=== PATIENT | male | born 1945 | race Caucasian/White ===

== ENCOUNTER 2016-11-21 08:45 | Outpatient (RCR) | payer MEDICARE, OTHER ==
[~2016-11-21 08:45] MED LIST: ASPI325T6 PO; ASPIRIN 81M81 MG/TA2 PO; COZAAR100 MG PO; DIOVAN160 MG PO; FERRO-TIME325 MG PO; IBUPROFEN800 MG PO; NAPROSYN500 MG PO; NATURAL C500 MG PO; NORCO 325 MG-7.1 TAB PO; NORVASC 10MG10 MG PO; NORVASC 5MG5 MG/TAB PO; PREVACID 15MG15 M1 PO; PRIL40 PO; TRANDATE 200MG200 MG PO; ZOCOR 20MG20 MG PO
== END 2016-12-02 12:20 | disposition home or self-care (01) ==
LOC: WSPT 08:45
DX: Z47.89 Encounter for other orthopedic aftercare (principal); M25.862 Other specified joint disorders, left knee
CPT/HCPCS: G8978-GP; G8979-GP; G8980-GP

== ENCOUNTER 2016-12-13 00:22 | Inpatient (IN) | payer MEDICARE, OTHER ==
[~2016-12-13] VITALS: Ht 180.3 cm; Wt 108.3 kg
[2016-12-13] VITALS (963 sets, daily range): BP systolic 114–154; BP diastolic 66–125; PULSE 46–147; TEMP 97–98.2; O2SAT 86–100
[2016-12-13 00:44] LABS: BASO % 0.5 % (0.0-2.0); EOS # 0.3 (0.0-0.7); EOS % 3.7 % (0-4.0); GRAN # 5.5 (1.4-6.5); GRAN % 66.1 % (42.2-75.2); HEMATOCRIT 47.5 % (42.0-52.0); HEMOGLOBIN 16.3 g/dl (13.5-18.0); LYMPH # 1.9 (1.2-3.4); LYMPH % 22.6 % (20.0-51.0); MEAN CELL VOLUME 95 fl (80.0-100.0); MEAN CORPUSCULAR HEMOGLOBIN 33 pg (27.0-31.0); MEAN CORPUSCULAR HGB CONC 34 g/dl (33.0-37.0); MEAN PLATELET VOLUME 11.2 fl (7.4-10.4); MONO # 0.6 (0.1-0.6); MONO % 6.7 % (1.7-9.3); PLATELET COUNT 197 K/mm3 (130-400); REDCELL DISTRIBUTION WIDTH-CV 12.8 % (11.5-14.5); WHITE BLOOD COUNT 8.4 K/mm3 (4.8-10.8)
[2016-12-13 00:55] LABS: PROTHROMBIN TIME 11.3 SECONDS (9.7-12.8)
[2016-12-13 00:56] LABS: ADJUSTED CALCIUM 9.5 mg/dL (8.4-10.2); ALBUMIN 4.4 gm/dL (3.5-5.0); BILIRUBIN,TOTAL 0.8 mg/dL (0.0-1.0); CALCIUM 9.8 mg/dL (8.4-10.2); CREATININE, serum 0.8 mg/dL (0.66-1.25); POTASSIUM 3.6 mmol/L (3.4-5.0); TOTAL PROTEIN 7.9 gm/dL (6.4-8.2)
[2016-12-13 00:58] LABS: PARTIAL THROMBOPLASTIN TIME 31.7 SECONDS (26.0-37.0)
[2016-12-13 01:09] LABS: TROPONIN-I 0.024 ng/mL (0.000-0.034)
[2016-12-13] MEDS ORDERED: COZAAR100 MG PO (01:55)
[2016-12-13] MEDS ORDERED: ASPIRIN 81M81 MG/TA2 PO (01:56)
[2016-12-13] MEDS ORDERED: PROCTOZONE-HC (01:57)
[2016-12-13] MEDS ORDERED: NYSTATIN100000 U/G (01:57)
[2016-12-13] MEDS ORDERED: THE MEDICINE S300 M1 PO (01:58)
[2016-12-13 06:04] LABS: BASO % 0.4 % (0.0-2.0); EOS # 0.2 (0.0-0.7); EOS % 3.1 % (0-4.0); GRAN # 4.4 (1.4-6.5); GRAN % 61.7 % (42.2-75.2); HEMATOCRIT 44.2 % (42.0-52.0); HEMOGLOBIN 14.9 g/dl (13.5-18.0); LYMPH % 28.3 % (20.0-51.0); MEAN CELL VOLUME 96 fl (80.0-100.0); MEAN CORPUSCULAR HEMOGLOBIN 32 pg (27.0-31.0); MEAN CORPUSCULAR HGB CONC 34 g/dl (33.0-37.0); MONO # 0.5 (0.1-0.6); MONO % 6.4 % (1.7-9.3); PLATELET COUNT 191 K/mm3 (130-400); RED BLOOD COUNT 4.63 M/mm3 (4.20-5.60); REDCELL DISTRIBUTION WIDTH-CV 12.9 % (11.5-14.5); WHITE BLOOD COUNT 7.1 K/mm3 (4.8-10.8)
[2016-12-13 06:05] LABS: INR 1.1 (0.8-3.0); PROTHROMBIN TIME 12.3 SECONDS (9.7-12.8)
[2016-12-13 06:07] LABS: PARTIAL THROMBOPLASTIN TIME 41.5 SECONDS (26.0-37.0)
[2016-12-13 06:21] LABS: ADJUSTED CALCIUM 9.4 mg/dL (8.4-10.2); ALBUMIN 3.6 gm/dL (3.5-5.0); BILIRUBIN,TOTAL 0.7 mg/dL (0.0-1.0); CALCIUM 9.1 mg/dL (8.4-10.2); CREATININE, serum 0.71 mg/dL (0.66-1.25); POTASSIUM 3.8 mmol/L (3.4-5.0); TOTAL PROTEIN 6.6 gm/dL (6.4-8.2)
[2016-12-13 06:43] LABS: TROPONIN-I 0.139 ng/mL (0.000-0.034)
[2016-12-14] VITALS (372 sets, daily range): BP systolic 120–181; BP diastolic 64–98; PULSE 46–65; TEMP 96.9–98.5; O2SAT 87–98
[2016-12-14 06:06] LABS: HEMATOCRIT 42.8 % (42.0-52.0); HEMOGLOBIN 14.6 g/dl (13.5-18.0); MEAN CELL VOLUME 94 fl (80.0-100.0); MEAN CORPUSCULAR HEMOGLOBIN 32 pg (27.0-31.0); MEAN CORPUSCULAR HGB CONC 34 g/dl (33.0-37.0); MEAN PLATELET VOLUME 10.7 fl (7.4-10.4); PLATELET COUNT 168 K/mm3 (130-400); RED BLOOD COUNT 4.54 M/mm3 (4.20-5.60); REDCELL DISTRIBUTION WIDTH-CV 12.8 % (11.5-14.5); WHITE BLOOD COUNT 7.4 K/mm3 (4.8-10.8)
[2016-12-14 06:08] LABS: INR 1.1 (0.8-3.0); PROTHROMBIN TIME 12.3 SECONDS (9.7-12.8)
[2016-12-14 06:20] LABS: CALCIUM 8.9 mg/dL (8.4-10.2); CREATININE, serum 0.8 mg/dL (0.66-1.25); POTASSIUM 3.7 mmol/L (3.4-5.0)
[2016-12-15 03:12] VITALS: BP 146/71; PULSE 53; TEMP 98.3
[2016-12-15 08:23] VITALS: BP 145/67; PULSE 54; TEMP 98.1
[2016-12-15 10:12] LABS: CALCIUM 9.7 mg/dL (8.4-10.2); CREATININE, serum 0.89 mg/dL (0.66-1.25); MAGNESIUM 1.9 mg/dL (1.6-2.3); POTASSIUM 3.9 mmol/L (3.4-5.0)
[2016-12-15] MEDS ORDERED: CORDARONE200 MG/TAB PO (10:31)
== END 2016-12-15 11:55 | disposition home or self-care (01) | DRG 287 ==
LOC: COL.ER 00:22 → IMCU 01:48 → ICU 01:48 → IMCU 12:21 → ICU 12:21 → MEDICAL 12-14 17:00
PROVIDERS: Emergency Medicine; Internal Medicine; Internal Medicine Cardiovascular Disease
PROC: B2111ZZ Fluoroscopy of Multiple Coronary Arteries using Low Osmolar Contrast (ICD-10-PCS; principal; 2016-12-15)
PROC: 4A023N7 Measurement of Cardiac Sampling and Pressure, Left Heart, Percutaneous Approach (ICD-10-PCS; 2016-12-15)
DX: I45.6 Pre-excitation syndrome (principal); I10 Essential (primary) hypertension; E78.5 Hyperlipidemia, unspecified; Z96.652 Presence of left artificial knee joint
CPT/HCPCS: 99231-AI; 99239; C1887; J0282; J1644; J2250; J3010; J7030; J7060; Q9967

== ENCOUNTER 2017-03-31 14:03 | Emergency (ER) | payer MEDICARE, OTHER ==
[~2017-03-31] VITALS: Ht 180.3 cm; Wt 109.1 kg
[~2017-03-31 14:03] MED LIST changes: +CORDARONE200 MG/TAB PO; +NYSTATIN100000 U/G; +PROCTOZONE-HC; +THE MEDICINE S300 M1 PO
[2017-03-31 14:17] VITALS: TEMP 98.7
[2017-03-31 15:27] LABS: BASO % 0.3 % (0.0-2.0); EOS # 0.1 (0.0-0.7); EOS % 1.6 % (0-4.0); GRAN # 5.9 (1.4-6.5); GRAN % 74.1 % (42.2-75.2); HEMATOCRIT 40.7 % (42.0-52.0); HEMOGLOBIN 14.1 g/dl (13.5-18.0); LYMPH # 1.3 (1.2-3.4); LYMPH % 16.3 % (20.0-51.0); MEAN CELL VOLUME 95 fl (80.0-100.0); MEAN CORPUSCULAR HEMOGLOBIN 33 pg (27.0-31.0); MEAN CORPUSCULAR HGB CONC 35 g/dl (33.0-37.0); MEAN PLATELET VOLUME 9.7 fl (7.4-10.4); MONO # 0.6 (0.1-0.6); MONO % 7.3 % (1.7-9.3); PLATELET COUNT 259 K/mm3 (130-400); REDCELL DISTRIBUTION WIDTH-CV 12.6 % (11.5-14.5)
[2017-03-31 15:39] LABS: INR 2.4 (0.8-3.0); PROTHROMBIN TIME 27.1 SECONDS (9.7-12.8)
[2017-03-31 15:40] LABS: ADJUSTED CALCIUM 9.3 mg/dL (8.4-10.2); ALANINE AMINOTRANSFERASE 54 U/L (21-72); ALKALINE PHOSPHATASE 109 U/L (50-136); ANION GAP 14 mmol/L (7-16); BILIRUBIN,TOTAL 0.8 mg/dL (0.0-1.0); BLOOD UREA NITROGEN 19 mg/dL (9-20); CALCIUM 9.3 mg/dL (8.4-10.2); CARBON DIOXIDE 25 mmol/L (22-30); CHLORIDE 104 mmol/L (98-107); GLUCOSE 127 mg/dL (74-106); POTASSIUM 3.4 mmol/L (3.4-5.0); SODIUM 143 mmol/L (137-145); TOTAL PROTEIN 7.4 gm/dL (6.4-8.2)
[2017-03-31 15:41] LABS: PARTIAL THROMBOPLASTIN TIME 42.3 SECONDS (26.0-37.0)
[2017-03-31 15:53] LABS: TROPONIN-I < 0.012 ng/mL (0.000-0.034)
[2017-03-31 16:31] VITALS: BP 127/64; PULSE 64
== END 2017-03-31 16:37 | disposition home or self-care (01) ==
LOC: COL.ER 14:03
PROVIDERS: Family Medicine
DX: R00.2 Palpitations (principal); R00.0 Tachycardia, unspecified; I45.6 Pre-excitation syndrome; I10 Essential (primary) hypertension; I48.91 Unspecified atrial fibrillation; K21.9 Gastro-esophageal reflux disease without esophagitis; M19.90 Unspecified osteoarthritis, unspecified site; Z79.82 Long term (current) use of aspirin; Z98.890 Other specified postprocedural states

== ENCOUNTER 2017-04-18 19:55 | Emergency (ER) | payer MEDICARE, OTHER ==
[~2017-04-18] VITALS: Ht 180.3 cm; Wt 109.1 kg
[2017-04-18 19:57] VITALS: BP 148/70; PULSE 63; TEMP 98.5
[2017-04-18] MEDS ORDERED: NORVASC 5MG5 MG/TAB PO (20:45)
[2017-04-18] MEDS ORDERED: PROTONIX 40MG T40 MG PO (20:45)
[2017-04-18] MEDS ORDERED: XARELTO20 MG PO (20:47)
[2017-04-18] MEDS ORDERED: VITAMIN C500 MG PO (20:48)
[2017-04-18] MEDS ORDERED: CARTIA XT180 MG PO (20:48)
== END 2017-04-18 21:15 | disposition home or self-care (01) ==
LOC: COL.ER 19:55
DX: M79.605 Pain in left leg (principal); I48.91 Unspecified atrial fibrillation; Z79.01 Long term (current) use of anticoagulants; M79.89 Other specified soft tissue disorders

== ENCOUNTER 2019-09-18 00:40 | Emergency (ER) | payer MEDICARE, OTHER ==
[~2019-09-18] VITALS: Ht 180.3 cm; Wt 113.6 kg
[~2019-09-18 00:40] MED LIST changes: +CARTIA XT180 MG PO; +PROTONIX 40MG T40 MG PO; +VITAMIN C500 MG PO; +XARELTO20 MG PO
[2019-09-18 00:53] VITALS: BP 155/74; TEMP 97.5
[2019-09-18 05:12] VITALS: PULSE 52
== END 2019-09-18 05:12 | disposition home or self-care (01) ==
LOC: COL.ER 00:40
DX: H61.22 Impacted cerumen, left ear (principal); H60.92 Unspecified otitis externa, left ear; I10 Essential (primary) hypertension; E78.5 Hyperlipidemia, unspecified; K21.9 Gastro-esophageal reflux disease without esophagitis

== ENCOUNTER 2020-08-16 14:03 | Outpatient (RCR) | payer MEDICARE | END 2020-09-06 10:11 | disposition home or self-care (01) | LOC: WSPT 14:03 | DX: Z96.651 Presence of right artificial knee joint (principal) ==

== ENCOUNTER → 2020-11-06 | Outpatient (RCR) | payer MEDICARE | END | disposition home or self-care (01) | LOC: WSPT | DX: M17.11 Unilateral primary osteoarthritis, right knee (principal); Z96.651 Presence of right artificial knee joint ==

== ENCOUNTER 2020-11-22 11:15 | Outpatient (RCR) | payer MEDICARE | END 2020-11-23 09:04 | disposition home or self-care (01) | LOC: WSPT 11:15 | DX: Z96.651 Presence of right artificial knee joint (principal) ==

== ENCOUNTER → 2021-01-03 | Outpatient (CLI) | payer MEDICARE ==
[~2021-01-03] MED LIST changes: +ELIQUIS 5MG PO; +HYGROTON 2525 MG/TAB; +HYZAAR 12.5 MG-1 TAB PO; +MAG-OX 400400 MG/TAB PO; +MASON NATURAL2000 IU PO; +MELATONIN5 M1 SL; +ZOCOR 40MG40 MG PO
== END ==
LOC: COL.VAS 07:28
DX: M79.604 Pain in right leg (principal); Z96.651 Presence of right artificial knee joint; Z47.1 Aftercare following joint replacement surgery

== ENCOUNTER 2021-03-21 06:32 | Day surgery (SDC) | payer MEDICARE ==
[~2021-03-21] VITALS: Ht 180.3 cm; Wt 112.0 kg
[~2021-03-21 06:32] MED LIST changes: -ELIQUIS 5MG PO; -HYGROTON 2525 MG/TAB; -HYZAAR 12.5 MG-1 TAB PO; -MAG-OX 400400 MG/TAB PO; -MASON NATURAL2000 IU PO; -MELATONIN5 M1 SL; -ZOCOR 40MG40 MG PO
[2021-03-21] MEDS ORDERED: ZOCOR 40MG40 MG PO (07:36)
[2021-03-21] MEDS ORDERED: HYGROTON 2525 MG/TAB (07:36)
[2021-03-21] MEDS ORDERED: HYZAAR 12.5 MG-1 TAB PO (07:38)
[2021-03-21] MEDS ORDERED: MELATONIN5 M1 SL (07:39)
[2021-03-21] MEDS ORDERED: MAG-OX 400400 MG/TAB PO (07:41)
[2021-03-21] MEDS ORDERED: MASON NATURAL2000 IU PO (07:42)
[2021-03-21] MEDS ORDERED: ELIQUIS 5MG PO (07:42)
[2021-03-21 08:12] VITALS: BP 129/65; PULSE 49; TEMP 98
[2021-03-21 08:35] VITALS: PULSE 54
--- NOTE | 2021-03-21 08:36 | NUR ---
SEE MERGE DOCUMENTATION FOR MEDICATION ADMINISTRATION TIMES AND INTRA/POST PROCEDURE SEDATION ASSESSMENTS.
[2021-03-21 09:10] VITALS: BP 113/63; PULSE 60
--- NOTE | 2021-03-21 09:10 | NUR ---
pt arrived to [facility] 9 via bed from cardiac catheterization technician, awake and alert. has dressing over upper left chest x2, clean and dry. no c/o pain or sob. call light in reach, takes juice and coffee, will con't to monitor
[2021-03-21 09:25] VITALS: BP 108/52; PULSE 56
[2021-03-21 09:40] VITALS: BP 101/51; PULSE 50
--- NOTE | 2021-03-21 10:00 | NUR ---
Dr Feliz into see pt, pt sits up in bed, dressing remains the same, Discharge inst. given to pt on care of site, signs of infection, and next appt. Pt is to hold eliquis till Friday am. reviewed moderate sedation orders with verbal understanding. IV d'cd intact, pt up in room dressed and discharged with supplies at 1010
== END 2021-03-21 10:10 | disposition home or self-care (01) ==
LOC: COL.CAR 06:32
DX: Z45.09 Encounter for adjustment and management of other cardiac device (principal); I48.0 Paroxysmal atrial fibrillation; I45.6 Pre-excitation syndrome; Z20.822 Contact with and (suspected) exposure to COVID-19
CPT/HCPCS: C1764; J0690; J2250; J3010

== ENCOUNTER → 2022-07-02 | Outpatient (CLI) | payer MEDICARE ==
[~2022-07-02] MED LIST changes: +ELIQUIS 5MG PO; +HYGROTON 2525 MG/TAB; +HYZAAR 12.5 MG-1 TAB PO; +MAG-OX 400400 MG/TAB PO; +MASON NATURAL2000 IU PO; +MELATONIN5 M1 SL; +ZOCOR 40MG40 MG PO
== END ==
LOC: COL.RAD 08:06
DX: K80.20 Calculus of gallbladder without cholecystitis without obstruction (principal); K57.30 Diverticulosis of large intestine without perforation or abscess without bleeding
CPT/HCPCS: Q9967

== ENCOUNTER → 2023-08-11 | Outpatient (CLI) | payer MEDICARE | LOC: DIA.ED 07:57 | DX: E11.9 Type 2 diabetes mellitus without complications (principal); Z79.84 Long term (current) use of oral hypoglycemic drugs; E78.5 Hyperlipidemia, unspecified; I10 Essential (primary) hypertension | CPT/HCPCS: G0108 ==

== ENCOUNTER → 2023-11-05 | Outpatient (CLI) | payer MEDICARE | LOC: DIA.ED 09:01 | DX: E11.9 Type 2 diabetes mellitus without complications (principal); Z79.84 Long term (current) use of oral hypoglycemic drugs; E78.5 Hyperlipidemia, unspecified; I10 Essential (primary) hypertension | CPT/HCPCS: G0108 ==

== ENCOUNTER → 2024-05-19 | Outpatient (CLI) | payer MEDICARE | LOC: DIA.ED 05:11 | DX: E11.9 Type 2 diabetes mellitus without complications (principal); Z79.84 Long term (current) use of oral hypoglycemic drugs; E78.5 Hyperlipidemia, unspecified; I10 Essential (primary) hypertension | CPT/HCPCS: G0108 ==

== ENCOUNTER 2024-08-19 06:56 | Day surgery (SDC) | payer MEDICARE ==
[~2024-08-19] VITALS: Ht 180.3 cm; Wt 105.4 kg
[2024-08-19 07:26] VITALS: BP 132/68; PULSE 42; TEMP 97.9
[2024-08-19] MEDS ORDERED: GLUCOPHAGE500 MG/TAB PO (07:36)
[2024-08-19] MEDS ORDERED: FOLIC ACID0.4 MG PO (07:36)
[2024-08-19] MEDS ORDERED: CORDARONE200 MG/TAB PO (07:37)
[2024-08-19] MEDS ORDERED: NS 250 ML IV.SOLN. IR SCH (09:34)
[2024-08-19] MEDS ORDERED: Midazolam 2 MG/2 ML VIAL IV SCH (10:03)
[2024-08-19] MEDS ORDERED: fentaNYL 50 MCG/ML 2 ML VIAL IV SCH (10:04)
[2024-08-19 10:25] VITALS: BP 126/70; PULSE 45
[2024-08-19 10:30] VITALS: BP 135/71; PULSE 47
[2024-08-19 10:45] VITALS: BP 131/71; PULSE 45
[2024-08-19 11:00] VITALS: BP 109/71; PULSE 44
--- NOTE | 2024-08-19 11:49 | NUR ---
PT TOLERATED RECOVERY PERIOD WELL. VS REMAINED WITHIN NORMAL LIMITS. CHEST DRESSING REMAINED CLEAN DRY AND INTACT. PT VERBALIZED UNDERSTANDING OF DISCHARGE INSTRUCTIONS. PT ASSISTED TO MAIN LOBBY VIA WHEELCHAIR. IV DISCONTINUED UPON DISCHARGE.
== END 2024-08-19 11:50 | disposition home or self-care (01) ==
LOC: COL.CAR 06:56
DX: I48.91 Unspecified atrial fibrillation (principal); I47.10 Supraventricular tachycardia, unspecified; G47.33 Obstructive sleep apnea (adult) (pediatric); Z99.89 Dependence on other enabling machines and devices
CPT/HCPCS: C1764; J0690; J2250; J3010; J7050